=== PATIENT | male | born 1945 | race Two or more races ===

== ENCOUNTER 2018-04-19 11:38 | Outpatient (CLI) | payer OTHER ==
[~2018-04-19] VITALS: Ht 185.4 cm; Wt 92.5 kg
== END 2018-04-19 12:00 | disposition home or self-care (01) ==
LOC: OFIC 805 11:38
DX: J34.89 Other specified disorders of nose and nasal sinuses (principal); R09.81 Nasal congestion; J30.89 Other allergic rhinitis

== ENCOUNTER 2018-07-13 11:19 | Outpatient (CLI) | payer OTHER ==
[~2018-07-13] VITALS: Ht 182.9 cm; Wt 92.5 kg
== END 2018-07-13 11:40 | disposition home or self-care (01) ==
LOC: OFIC 805 11:19
DX: J30.89 Other allergic rhinitis (principal)

== ENCOUNTER 2019-07-01 09:08 | Emergency (ER) | payer OTHER ==
[~2019-07-01] VITALS: Ht 182.9 cm; Wt 88.5 kg
[2019-07-01] MEDS ORDERED: CARDIZEM CD300 MG (09:22)
[2019-07-01] MEDS ORDERED: AVALIDE 300-121 EACH PO (09:22)
[2019-07-01] MEDS ORDERED: DRAMAMINE LESS25 MG PO (10:56)
== END 2019-07-01 11:33 | disposition home or self-care (01) ==
LOC: ER 09:08
DX: R42 Dizziness and giddiness (principal)

== ENCOUNTER → 2020-05-04 | Emergency (ER) | payer OTHER ==
[~2020-05-04] MED LIST: AVALIDE 300-121 EACH PO; CARDIZEM CD300 MG; DRAMAMINE LESS25 MG PO
== END | disposition left against medical advice (07) ==
LOC: ER 08:48
DX: Z53.21 Procedure and treatment not carried out due to patient leaving prior to being seen by health care provider (principal)

== ENCOUNTER 2021-06-18 08:00 | Outpatient (CLI) | payer OTHER | END 2021-06-18 08:30 | disposition home or self-care (01) | LOC: PPH VACUNA 08:00 | PROVIDERS: ATTEND Emergency Medicine Pediatric Emergency Medicine | DX: Z23 Encounter for immunization (principal) ==

== ENCOUNTER 2023-08-10 08:50 | Emergency (ER) | payer OTHER ==
[~2023-08-10] VITALS: Ht 182.9 cm; Wt 90.7 kg
== END 2023-08-10 11:33 | disposition home or self-care (01) ==
LOC: ER
DX: R42 Dizziness and giddiness (principal)

== ENCOUNTER 2024-12-06 07:18 | Emergency (ER) | payer OTHER ==
[~2024-12-06] VITALS: Ht 182.9 cm; Wt 87.1 kg
[2024-12-06] MEDS ORDERED: DEXAMETHASONE SODIUM PHOSPHATE 4 MG/ML VIAL IM STA (08:56)
[2024-12-06] MEDS ORDERED: MECLIZINE HCL 25 MG TABLET PO STA (08:56)
[2024-12-06] MEDS ORDERED: MECLIZINE HCL 25 MG TABLET PO ONE (09:04)
[2024-12-06] MEDS ORDERED: DEXAMETHASONE SODIUM PHOSPHATE 4 MG/ML VIAL ONE (09:04)
== END 2024-12-06 12:21 | disposition home or self-care (01) ==
LOC: ER 07:20
DX: R53.81 Other malaise (principal); R42 Dizziness and giddiness; I10 Essential (primary) hypertension
CPT/HCPCS: 96372; 99282; J1100

== ENCOUNTER 2025-01-25 10:58 | Emergency (ER) | payer OTHER ==
[~2025-01-25] VITALS: Ht 182.9 cm; Wt 87.1 kg
[2025-01-25] MEDS ORDERED: RELAFEN DS1000 MG PO (12:40)
[2025-01-25] MEDS ORDERED: MECLIZINE HCL 25 MG TABLET PO STA (12:54)
[2025-01-25] MEDS ORDERED: MECLIZINE HCL 25 MG TABLET PO ONE (13:34)
== END 2025-01-25 15:34 | disposition home or self-care (01) ==
LOC: ER 11:29
DX: R42 Dizziness and giddiness (principal); I10 Essential (primary) hypertension